=== PATIENT | male | born 1990 | race Caucasian/White ===

== ENCOUNTER 2023-10-28 20:16 | Observation (INO) | payer OTHER ==
[2023-10-28] MEDS ORDERED: PROTONIX 40 MG IV IV ONE ×2 (20:23→20:24)
[2023-10-28] MEDS ORDERED: GlucaGen 1 MG IV ONE (20:23)
--- NOTE | 2023-10-28 20:42 | ERPHSYRPT ---
- History of Present Illness Historian: patient Exam Limitations: no limitations Patient Subjective Stated Complaint: pt states that he has a piece of steak caught in his throat Triage Nursing Assessment: pt ambulated into the er; pt is axo x4; c/o food bolus; no audible upper airway obstruction; clear lung sounds in all lobes; c/o nausea, vomiting; active bowel sounds in all quads; no respiratory distress present; hypertension; skin PDW Physician History: 33-year-old gentleman states that he has piece of steak caught in his throat. He denies any other symptoms this time. Timing/Duration: other (Prior to ER arrival) Activities at Onset: other (Eating steak) Quality: other (Fullness in his esophagus.) Abdominal Pain Onset Location: other (Esophageal area.) Pain Radiation: no radiation Severity of Pain-Max: moderate Severity of Pain-Current: moderate Modifying Factors: Improves With: nothing, eating Associated Symptoms: denies symptoms Previous symptoms: no prior history Allergies/Adverse Reactions: codeine [Codeine] Allergy (Mild, Verified 12/24/15 13:57) Home Medications: No Reportable Medications [No Reported Medications] 10/28/23 [History] Hx Tetanus, Diphtheria Vaccination/Date Given: Yes Hx Influenza Vaccination/Date Given: No Hx Pneumococcal Vaccination/Date Given: No Travel Risk - International Travel Have you traveled outside of the country in past 3 weeks: No - Coronavirus Screening Are you exhibiting any of the following symptoms?: No Close contact with a COVID-19 positive Pt in past 14-21 Days: No - Vaccine Status Have you recieved a Covid-19 vaccination: Yes 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[employer] - Vaccination Dates Date of 2cond Vaccination (if applicable): 2020 - Review of Systems Constitutional: No Symptoms Eyes: No Symptoms Ears, Nose, & Throat: No Symptoms, Throat Pain Respiratory: No Symptoms Cardiac: No Symptoms Abdominal/Gastrointestinal: No Symptoms Genitourinary Symptoms: No Symptoms Musculoskeletal: No Symptoms Skin: No Symptoms Neurological: No Symptoms Psychological: No Symptoms Endocrine: No Symptoms Hematologic/Lymphatic: No Symptoms Immunological/Allergic: No Symptoms - Past Medical History Pertinent Past Medical History: No Neurological History: No Pertinent History ENT History: No Pertinent History Cardiac History: No Pertinent History Respiratory History: No Pertinent History Endocrine Medical History: No Pertinent History Musculoskeletal History: No Pertinent History GI Medical History: Hernia History: No Pertinent History Psycho-Social History: No Pertinent History, Other Male Reproductive Disorders: No Pertinent History - Past Surgical History Past Surgical History: Yes Neuro Surgical History: No Pertinent History Cardiac: No Pertinent History Gastrointestinal: No Pertinent History Genitourinary: No Pertinent History Musculoskeletal: Orthopedic Surgery Male Surgical History: No Pertinent History Other Surgical History: KNEE SCOPE-RIGHT - Social History Smoking Status: Never smoker Exposure to second hand smoke: No Drug Use: none Patient Lives Alone: No - Nursing Vital Signs Nursing Vital Signs: Initial Vital Signs Temperature 96.7 F 10/28/23 20:17 Pulse Rate 104 H 10/28/23 20:17 Respiratory Rate 18 10/28/23 20:17 Blood Pressure 149/102 10/28/23 20:17 O2 Sat by Pulse Oximetry 97 10/28/23 20:17 Pain Scale Pain Intensity 0 - Physical Exam General Appearance: mild distress (Mild distress due to esophageal discomfort) Eye Exam: PERRL/EOMI, eyes nml inspection Ears, Nose, Throat Exam: normal ENT inspection, TMs normal, pharynx normal, moist mucous membranes Neck Exam: normal inspection, non-tender, supple, full range of motion, No meningismus, No mass, No Brudzinski, No Kernig's Respiratory Exam: normal breath sounds, lungs clear, airway intact Cardiovascular Exam: tachycardia, capillary refill <2 sec, No murmur Gastrointestinal/Abdomen Exam: soft, normal bowel sounds, No tenderness Back Exam: normal inspection, normal range of motion Extremity Exam: normal inspection, normal range of motion Neurologic Exam: alert, oriented x 3, cooperative, principal developer II-XII nml as tested, normal mood/affect, nml cerebellar function, nml station & gait, sensation nml Skin Exam: normal color, warm, dry Lymphatic Exam: No adenopathy SpO2 Interpretation: normal SpO2: 97 O2 Delivery: Room Air - Course Nursing assessment & vital signs reviewed: Yes Ordered Tests: Active Orders 24 hr Category Date Time Status NPO Diet 10/28/23 20:52 Active Transfer Order Routine Transfer 10/28/23 Completed Medication Summary Generic Name Dose Route Start Last Admin Trade Name Freq PRN Reason Stop Dose Admin Sodium Chloride 1,000 mls @ 100 mls/hr 10/28/23 21:45 Sodium Chloride 0.9% 1000 Ml IV 11/27/23 21:44 .Q10H FAVIAN Ondansetron HCl 4 mg 10/28/23 21:40 Ondansetron Hcl 4 Mg/2 Ml Vial IV 11/27/23 21:39 Q6H PRN PRN NAUSEA/VOMITING Discontinued Medications Generic Name Dose Route Start Last Admin Trade Name Freq PRN Reason Stop Dose Admin Glucagon 1 mg 10/28/23 20:23 10/28/23 20:28 Glucagon 1 Mg/Vial Vial IV 10/28/23 20:24 1 mg STAT ONE Administration Pantoprazole Sodium 40 mg 10/28/23 20:23 10/28/23 20:26 Pantoprazole 40 Mg Vial IV 10/28/23 20:24 40 mg STAT ONE Administration Pantoprazole Sodium Confirm 10/28/23 20:24 Pantoprazole 40 Mg Vial Administered 10/28/23 20:25 Dose 40 mg IV .[employer] - Progress Progress Note: 10/28/23 20:48 Nursing note and vital signs reviewed. No food or housing insecurity is noted. IV access started and patient given 1 mg IV glucagon and 40 mg IV Protonix without resolution of food bolus. Dr. Mansoor Pascal consulted and will take patient to surgery for an EGD in the morning. Patient accepted by Dr. Faulkner hospitalist, who will admit patient. Counseled pt/family regarding: diagnosis Medical Desision Making - Risk of complications The pt has a mod risk of morbidity or mortality based on: Need for minor surgical intervention in patient with know risk factors - Departure Departure Disposition: Observation Clinical Impression: Esophageal obstruction due to food impaction Condition: Stable Critical Care Time: No
[2023-10-28] MEDS ORDERED: Zofran 4 MG/2 ML VIAL IV PRN (21:40)
[2023-10-28] MEDS ORDERED: Sodium Chloride 0.9% 1000 ML 1,000 ML IV SCH (21:45)
--- NOTE | 2023-10-28 21:53 | PCM.HP ---
History of Present Illness - Chief Complaint Chief Complaint: esophageal food bolus History of Present Illness: is a 33 year old young man with no past medical history here with c/o piece of steak he ate for dinner being stuck in his esophagus. He is able to breath, but cannot swallow water or his spit. Able to talk, and denies any pain. This has not happen to him before. I am seeing him via telemedicine. He is resting, comfortable, no acute distress. Able to spit up his saliva as needed. He has no other acute complaint for me ER has spoken to Dr Pascal, surgery, and he will take care of him in AM - Review of Systems Constitutional: No Symptoms Eyes: No Symptoms Ears, Nose, & Throat: No Symptoms Respiratory: No Symptoms Cardiac: No Symptoms Abdominal/Gastrointestinal: Dysphagia Genitourinary Symptoms: No Symptoms Musculoskeletal: No Symptoms Skin: No Symptoms Neurological: No Symptoms Psychological: No Symptoms Endocrine: No Symptoms Hematologic/Lymphatic: No Symptoms Immunological/Allergic: No Symptoms All Other Systems: Reviewed and Negative Medications & Allergies Home Medications: Home Medication List No Reportable Medications [No Reported Medications] 10/28/23 [History Confirmed 10/28/23] Allergies/Adverse Reactions: Allergies Allergy/AdvReac Type Severity Reaction Status Date / Time codeine [Codeine] Allergy Mild Verified 12/24/15 13:57 - Past Medical History Past Medical History: No Neurological History: No Pertinent History ENT History: No Pertinent History Cardiac History: No Pertinent History Respiratory History: No Pertinent History Endocrine Medical History: No Pertinent History Musculoskelatal History: No Pertinent History GI Medical History: Hernia History: No Pertinent History Pyscho-Social History: No Pertinent History Male Reproductive Disorders: No Pertinent History - Past Surgical History Past Surgical History: Yes Neuro Surgical History: No Pertinent History Cardiac History: No Pertinent History Respiratory Surgery: No Pertinent History GI Surgical History: No Pertinent History Genitourinary Surgical Hx: No Pertinent History Musculskeletal Surgical Hx: Orthopedic Surgery Male Surgical History: No Pertinent History Other Surgical History: KNEE SCOPE-RIGHT - Social History Smoking Status: Never smoker Exposure to second hand smoke: No Alcohol: Occasionally Drug Use: none Significant Family History: no pertinent family hx - Physical Exam Vital Signs: Vital Signs - 24 hr Temp Pulse Resp BP BP Pulse Ox 10/28/23 21:12 97.1 F 88 20 171/104 99 10/28/23 20:53 97 10/28/23 20:18 121 H 19 149/102 96 10/28/23 20:17 96.7 F 104 H 18 149/102 97 General Appearance: no apparent distress Neurologic Exam: alert, oriented x 3, cooperative Eye Exam: PERRL/EOMI, eyes nml inspection Ears, Nose, Throat Exam: normal ENT inspection Neck Exam: normal inspection, non-tender, supple Respiratory Exam: normal breath sounds, lungs clear Cardiovascular Exam: regular rate/rhythm, normal heart sounds Gastrointestinal/Abdomen Exam: soft, normal bowel sounds Rectal Exam: deferred Back Exam: normal inspection Extremity Exam: normal inspection, normal range of motion Skin Exam: normal color, warm, dry Assessment/Plan (1) Esophageal obstruction due to food impaction Current Visit: Yes Status: Acute Assessment & Plan: Food bolus in esophagus. He is able to maintain airway and spit out his saliva as needed. Dr Pascal has been consulted, and will see pt in AM. Plan NPO, NS at 100ml/hr, supportive care Code(s): T18.128A - FOOD IN ESOPHAGUS CAUSING OTHER INJURY, INITIAL ENCOUNTER; W44.F3XA - FOOD ENTERING VIA NATURAL ORIFICE, INITIAL ENCOUNTER Telemedicine Encounter - Telemedicine Encounter Telemedicine Encounter: The entirety of this encounter was performed via Telemedicine" The pt gave me verbal consent to have this telemedicine visit
[2023-10-28] MEDS ORDERED: TORAdol 30 mg Injection IV PRN (22:40)
--- NOTE | 2023-10-29 05:16 | PCM.NOTE ---
Date and Time: 10/29/23512 Subjective Assessment: is a 33 year old young man with no past medical history here with c/o piece of steak he ate for dinner being stuck in his esophagus. He is able to breath, but cannot swallow water or his spit. Able to talk, and denies any pain. This has not happen to him before. Surgery has been consulted. 10/29: OBJECTIVE DATA Vital Signs: Vital Signs - 24 hr Temp Pulse Resp BP BP Pulse Ox 10/29/23 04:00 98.6 F 67 16 123/78 94 L 10/29/23 00:00 16 10/28/23 23:52 98.7 F 67 16 153/78 94 L 10/28/23 22:19 97 10/28/23 21:12 97.1 F 88 20 171/104 99 10/28/23 20:18 121 H 19 149/102 96 10/28/23 20:17 96.7 F 104 H 18 149/102 97 Pain Assessment - Last Documented Pain Intensity 0 Pain Scale Used 0-10 Pain Scale Intake and Output: Intake & Output 10/26/23 10/27/23 10/28/23 10/29/23 11:59 11:59 11:59 11:59 Intake Total 533 Balance 533 Weight 97.5 kg Assessment/Plan (1) Esophageal obstruction due to food impaction Current Visit: Yes Status: Acute Assessment & Plan: Food bolus in esophagus. He is able to maintain airway and spit out his saliva as needed. Dr Pascal has been consulted, and will see pt in AM. Plan NPO, NS at 100ml/hr, supportive care Code(s): T18.128A - FOOD IN ESOPHAGUS CAUSING OTHER INJURY, INITIAL ENCOUNTER; W44.F3XA - FOOD ENTERING VIA NATURAL ORIFICE, INITIAL ENCOUNTER
[2023-10-29 06:05] LABS: Absolute Neutrophil Ct (ANC) 3.17 x10^3/uL (1.4-6.9); BASOPHIL % 0.8 % (0.0-0.4); Basophil (Absolute #) 0.06 x10^3/uL (0-0.4); Eosinophil % 7.7 % (0.00-5.0); Eosinophil (Absolute #) 0.56 x10^3/uL (0-0.5); Hemoglobin 14.8 g/dL (12.5-18.0); IMMATURE GRAN # 0.01 x10^3u/L (0.00-0.03); IMMATURE GRAN % 0.1 % (0.00-0.4); Lymphocyte (Absolute #) 2.77 x10^3/uL (1.0-4.6); Lymphocytes % 38.3 % (24.0-44.0); Mean Cell Volume 86.8 fL (78-100); Mean Corpuscular Hemoglobin 29.2 pg (26-32); Mean Corpuscular Hgb Concent. 33.6 g/dL (32-36); Mean Platelet Volume 9.1 fL (7.5-11.0); Monocyte (Absolute #) 0.67 x10^3/uL (0.0-1.3); Monocytes % 9.3 % (0.0-12.0); Neutrophil % 43.8 % (36.0-66.0); Platelet Count 300 x10^3/uL (150-450); Red Blood Count 5.07 x10^6/uL (4.1-5.6); Red Cell Distribution Width 12.8 % (11.5-14.0); White Blood Count 7.2 x10^3/uL (4.0-10.5)
[2023-10-29 06:24] LABS: ALBUMIN 4.2 g/dL (3.5-5.0); ANION GAP 12.1 MEQ/L (5-15); Calcium 8.9 mg/dL (8.4-10.2); Creatinine 1 0.79 mg/dL (0.66-1.25); EST GLOMERULAR FILTRATION RATE 119.6 ML/MIN; Potassium 3.9 mmol/L (3.5-5.1); Total Protein 7.1 g/dL (6.3-8.2)
[2023-10-29] MEDS ORDERED: Lactated Ringers 1,000 ML IV SCH (08:30)
[2023-10-29 08:47] VITALS: O2SAT 97
[2023-10-29] MEDS ORDERED: SUBLIMAZE 100 MCG/2 ML ONE (10:08)
[2023-10-29] MEDS ORDERED: Versed 2 MG/2 ML Injection ONE (10:08)
[2023-10-29] MEDS ORDERED: DIPRIVAN 200 MG/20 ML IV ONE (10:08)
[2023-10-29] MEDS ORDERED: Quelicin Fliptop 200 MG/10 ML ONE (10:08)
--- NOTE | 2023-10-29 10:15 | PCM.DS ---
Discharge Summary Date of Admission: 10/28/23 21:10 Date of Discharge: 10/29/23 Admitting Physician: MENG TEMPLE DO Primary Care Provider: CHETNA,CHRISTIANO Allergies Allergies codeine [Codeine] Allergy (Mild, Verified 12/24/15 13:57) Hospital Summary - Hospital Course Hospital Course: is a 33 year old young man with no past medical history admitted with c/o piece of steak he ate for dinner being stuck in his esophagus. He is able to breath, but cannot swallow water or his spit. Able to talk, and denies any pain. This has not happen to him before. Surgery consulted, EGD performed 10/29/23 for removal, small stricture noted, surgery reports no need for dilatation at this time. Patient advised follow up with PCP. Discharge Note New Diagnosis:Esophageal food impaction New Medications: none Follow Up: PCP Latest Assessment & Plan (1) Esophageal obstruction due to food impaction Current Visit: Yes Status: Acute Assessment & Plan: Food bolus in esophagus. He is able to maintain airway and spit out his saliva as needed. Dr Pascal has been consulted, and will see pt in AM. Plan NPO, NS at 100ml/hr, supportive care Code(s): T18.128A - FOOD IN ESOPHAGUS CAUSING OTHER INJURY, INITIAL ENCOUNTER; W44.F3XA - FOOD ENTERING VIA NATURAL ORIFICE, INITIAL ENCOUNTER I spent 35 minutes [id number] with the patient on the day of discharge performing discharge exam, discussing hospital stay and discharge instructions with patient and caregivers, preparation of discharge records, prescriptions & referral forms and addressing any questions/concerns the patient had as documented above. - Vitals & Intake/Output Vital Signs: Vital Signs Temperature 97.4 F 10/29/23 09:12 Pulse Rate 87 10/29/23 09:12 Respiratory Rate 17 10/29/23 09:12 Blood Pressure 148/85 10/29/23 09:12 O2 Sat by Pulse Oximetry 97 10/29/23 09:12 Intake & Output: Intake & Output 10/26/23 10/27/23 10/28/23 10/29/23 11:59 11:59 11:59 11:59 Intake Total 533 Balance 533 Weight 97.5 kg - Lab Result Diagrams: 10/29/23 06:01 10/29/23 06:01 Lab Results-Last 24 Hrs: Lab Results-Last 24 Hours 10/29/23 10/29/23 Range/Units 06:01 06:01 WBC 7.2 (4.0-10.5) x10^3/uL RBC 5.07 (4.1-5.6) x10^6/uL Hgb 14.8 (12.5-18.0) g/dL Hct 44.0 (42-50) % MCV 86.8 (78-100) fL MCH 29.2 (26-32) pg MCHC 33.6 (32-36) g/dL RDW 12.8 (11.5-14.0) % Plt Count 300 (150-450) x10^3/uL MPV 9.1 (7.5-11.0) fL Gran % 43.8 (36.0-66.0) % Immature Gran % (Auto) 0.1 (0.00-0.4) % Nucleat RBC Rel Count 0.0 (0.00-0.1) % Eos # (Auto) 0.56 H (0-0.5) x10^3/uL Immature Gran # (Auto) 0.01 (0.00-0.03) x10^3u/L Absolute Lymphs (auto) 2.77 (1.0-4.6) x10^3/uL Absolute Monos (auto) 0.67 (0.0-1.3) x10^3/uL Absolute Nucleated RBC 0.00 (0.00-0.01) x10^3u/L Lymphocytes % 38.3 (24.0-44.0) % Monocytes % 9.3 (0.0-12.0) % Eosinophils % 7.7 H (0.00-5.0) % Basophils % 0.8 (0.0-0.4) % Absolute Granulocytes 3.17 (1.4-6.9) x10^3/uL Basophils # 0.06 (0-0.4) x10^3/uL Sodium 143 (137-145) mmol/L Potassium 3.9 (3.5-5.1) mmol/L Chloride 113 H (98-107) mmol/L Carbon Dioxide 22 (22-30) mmol/L Anion Gap 12.1 (5-15) MEQ/L BUN 9 (9-20) mg/dL Creatinine 0.79 (0.66-1.25) mg/dL Estimated GFR 119.6 ML/MIN Glucose 95 (74-106) mg/dL Calcium 8.9 (8.4-10.2) mg/dL Total Bilirubin 1.00 (0.2-1.3) mg/dL AST 25 (17-59) U/L ALT 28 (0-50) U/L Alkaline Phosphatase 58 (38-126) U/L Serum Total Protein 7.1 (6.3-8.2) g/dL Albumin 4.2 (3.5-5.0) g/dL Discharge Exam General Appearance: no apparent distress Neurologic Exam: alert, oriented x 3, cooperative Eye Exam: PERRL Ears, Nose, Throat Exam: normal ENT inspection Neck Exam: normal inspection Respiratory Exam: normal breath sounds, lungs clear Cardiovascular Exam: regular rate/rhythm, normal heart sounds Gastrointestinal/Abdomen Exam: soft, normal bowel sounds Male Genitalia Exam: deferred Rectal Exam: deferred Back Exam: normal inspection Extremity Exam: normal inspection Skin Exam: normal color Final Diagnosis/Problem List - Final Discharge Diagnosis/Problem (1) Esophageal obstruction due to food impaction Current Visit: Yes Status: Acute Code(s): T18.128A - FOOD IN ESOPHAGUS CAUSING OTHER INJURY, INITIAL ENCOUNTER; W44.F3XA - FOOD ENTERING VIA NATURAL ORIFICE, INITIAL ENCOUNTER - Discharge Disposition: Home, Self-Care Condition: Stable Prescriptions: No Action No Reportable Medications [No Reported Medications] Follow up with: CHRISTIANO BASILIO MD [Primary Care Provider] -
[2023-10-29 11:52] VITALS: BP 128/59; PULSE 95; RESP 18; TEMP 97.6
--- NOTE | 2023-10-31 11:29 | OP ---
SURGERY DATE/TIME: 10/29/2023 1023 PREOPERATIVE DIAGNOSIS: Lodged food bolus. POSTOPERATIVE DIAGNOSIS: Lodged food bolus distal esophagus with very minimal stricture. PROCEDURE: EGD with advancement of food bolus. SURGEON: Mansoor Pascal M.D. ANESTHESIA: General. COMPLICATIONS: None. CONDITION: Stable. DESCRIPTION OF PROCEDURE: The patient taken to surgery. Endotracheal tube was placed. Scope introduced. Food bolus was lodged distal esophagus. About three bites were taken and it was small enough to advance. The stomach was satisfactory. Pylorus satisfactory. Duodenal bulb satisfactory. Scope withdrawn looped upon itself. Gastroesophageal junction satisfactory from below. There was a very light stricture of the distal esophagus. There was very minimal irritation as this had not been lodged very long. The scope is withdrawn. Instructions were given. The patient tolerated the procedure satisfactorily.
== END 2023-10-29 12:52 | disposition home or self-care (01) ==
LOC: ED 20:16 → MED SURG 21:10
PROVIDERS: ADMIT Internal Medicine; ATTEND Internal Medicine
DX: T18.128A Food in esophagus causing other injury, initial encounter (principal); W44.F3XA Food entering into or through a natural orifice, initial encounter; R51.9 Headache, unspecified; Z20.828 Contact with and (suspected) exposure to other viral communicable diseases
CPT/HCPCS: 36415; 43247; 80053; 85025; 96374; 96375; 99284; G0378; Q3014; J0330; J1610; J1885; J2250; J2704; J3010

== ENCOUNTER 2025-01-12 20:25 | Emergency (ER) | payer OTHER ==
[2025-01-12 20:40] VITALS: RESP 18; TEMP 98.4; O2SAT 99
--- NOTE | 2025-01-12 21:12 | ERPHSYRPT ---
- History of Present Illness Time Seen by Provider: 01/12/25 21:07 Source: patient Exam Limitations: no limitations Patient Subjective Stated Complaint: pt states that he has been coughing for the past 2 days Triage Nursing Assessment: pt ambulated into the er; pt is axo x4; c/o cough; pt denies pain; dry hacking cough present; clear lung sounds in all lobes; pt denies SOB, no respiratory distress present; c/o vomiting, denies diarrhea; abd round, soft, nontender; active bowel sounds in all quads; skin pink, warm, moist; hypertensive Physician History: 34-year-old healthy male presented in the ER with complains of flulike symptoms for the last 2 days with sinus/nasal congestion, minimal nonproductive cough without difficulty breathing. Aches and pains all over. Nausea and couple of episodes of nonprojectile, nonbilious vomiting without hematemesis. Positive contact with other people around with similar symptoms Allergies/Adverse Reactions: codeine [Codeine] Allergy (Mild, Verified 01/12/25 20:28) Home Medications: No Reportable Medications [No Reported Medications] 10/28/23 [History] Hx Tetanus, Diphtheria Vaccination/Date Given: Yes Hx Influenza Vaccination/Date Given: No Hx Pneumococcal Vaccination/Date Given: No Travel Risk - International Travel Have you traveled outside of the country in past 3 weeks: No - Emerging Infectious Disease Are you exhibiting symptoms associated with any current EIDs: Yes Symptoms: Cough: New Onset, Vomitting - Review of Systems Constitutional: Fever, Chills, Fatigue, Weakness Eyes: No Symptoms Ears, Nose, & Throat: Nose Congestion Respiratory: Cough Cardiac: No Symptoms Abdominal/Gastrointestinal: Nausea, Vomiting, No Abdominal Pain Musculoskeletal: Myalgias Neurological: No Symptoms Psychological: No Symptoms - Past Medical History Pertinent Past Medical History: Yes Neurological History: No Pertinent History ENT History: No Pertinent History Cardiac History: No Pertinent History Respiratory History: No Pertinent History Endocrine Medical History: No Pertinent History Musculoskeletal History: No Pertinent History GI Medical History: Hernia History: No Pertinent History Psycho-Social History: No Pertinent History Male Reproductive Disorders: No Pertinent History - Past Surgical History Past Surgical History: Yes Neuro Surgical History: No Pertinent History Cardiac: No Pertinent History Respiratory: No Pertinent History Gastrointestinal: No Pertinent History Genitourinary: No Pertinent History Musculoskeletal: Orthopedic Surgery Male Surgical History: No Pertinent History Other Surgical History: KNEE SCOPE-RIGHT Significant Family History: no pertinent family hx - Social History Smoking Status: Never smoker Exposure to second hand smoke: No Drug Use: none - Social Determinants of Health Will the patient participate in the screening: Yes Do you worry about a steady place to live?: No Do you have any problems with any of the following?: No known problems In the past 12 months,have you had to go without utilities?: No Transportation Issues: No Has anyone in your support network made you feel unsafe?: No Have you or anyone in your house had to go w/o enough food: No - Nursing Vital Signs Nursing Vital Signs: Initial Vital Signs Temperature 98.4 F 01/12/25 20:29 Pulse Rate 103 H 01/12/25 20:29 Respiratory Rate 18 01/12/25 20:29 Blood Pressure 147/101 01/12/25 20:29 O2 Sat by Pulse Oximetry 99 01/12/25 20:29 Pain Scale Pain Intensity 0 - Physical Exam General Appearance: no apparent distress, alert Eye Exam: PERRL/EOMI Ears, Nose, Throat Exam: moist mucous membranes, pharyngeal erythema Neck Exam: normal inspection, non-tender, supple, full range of motion Respiratory Exam: normal breath sounds, lungs clear Cardiovascular Exam: regular rate/rhythm, normal heart sounds Gastrointestinal/Abdomen Exam: soft, normal bowel sounds, No tenderness Back Exam: normal inspection Extremity Exam: normal inspection, normal range of motion Neurologic Exam: alert, oriented x 3, cooperative Skin Exam: normal color SpO2 Interpretation: normal SpO2: 99 O2 Delivery: Room Air Lab/Rad Data: Laboratory Results 01/12/25 Range/Units 20:43 Influenza Type A Ag NEGATIVE (NEGATIVE) Influenza Type B Ag NEGATIVE (NEGATIVE) RSV (PCR) NEGATIVE (NEGATIVE) SARS-CoV-2 (PCR) NEGATIVE (NEGATIVE) - Progress Progress: unchanged Air Movement: good Progress Note: 01/12/25 21:30 34-year-old is evaluated in the ER for flulike symptoms for 2 days. Lungs clear to auscultation, no shortness of breath. Stable vitals. Has negative COVID flu and RSV, do not think needs imaging or any other workup. I believe patient's symptoms are viral etiology, recommended supportive care and outpatient follow-up. Discussed signs symptoms of worsening needing return to ER which he seems understanding. Stable for discharge. Blood Culture(s) Obtained: No Antibiotics given: No Counseled pt/family regarding: lab results, diagnosis, need for follow-up Medical Desision Making - Diagnostic Testing Diagnostic test were ordered, analyzed, and reviewed by me: Yes - Departure Departure Disposition: Home Clinical Impression: URI with cough and congestion Condition: Stable Critical Care Time: No Referrals: CHRISTIANO BASILIO MD [Primary Care Provider] - Follow up with PCP 1 day Instructions: Cough, Adult (DC) Additional Instructions: Take Tylenol/ibuprofen as needed. Follow-up with primary care for reevaluation. Return to ER for any worsening.
[2025-01-12 21:21] LABS: INFLUENZA A NEGATIVE (NEGATIVE); INFLUENZA B NEGATIVE (NEGATIVE); RESPIRATORY SYNCTIAL VIRUS NEGATIVE (NEGATIVE); SARS-CoV-2 Xpert Express NEGATIVE (NEGATIVE)
[2025-01-12 21:35] VITALS: BP 131/99; PULSE 72
== END 2025-01-12 21:37 | disposition home or self-care (01) ==
LOC: ED 20:25
DX: J06.9 Acute upper respiratory infection, unspecified (principal); R05.1 Acute cough; R09.81 Nasal congestion; M79.10 Myalgia, unspecified site; R11.2 Nausea with vomiting, unspecified
CPT/HCPCS: 0241U; 99283; 99282